=== PATIENT | female | born 2005 | race Caucasian/White ===

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

== ENCOUNTER 2025-04-27 10:47 | Emergency (ER) | payer OTHER, SELFPAY ==
[2025-04-27 11:18] VITALS: BP 133/79; PULSE 87; RESP 20; TEMP 36.6; O2SAT 100; BMI 20.3
--- NOTE | 2025-04-27 11:22 | DI.RAD.S_ITS ---
PROCEDURE: XR CHEST 1V INDICATIONS: sob TECHNIQUE: One view of the chest was acquired. COMPARISON: None. FINDINGS: Surgical changes and devices: None. Lungs and pleura: Lungs are clear. No pleural effusions or pneumothorax. Mediastinum: Mediastinal contours appear normal. Heart size is normal. Bones and chest wall: No suspicious bony lesions. Overlying soft tissues appear unremarkable. IMPRESSION: No acute cardiopulmonary abnormality is seen. Dictated by: Fred Roth M.D. on 04/27/2025 at 12:31 Approved by: Fred Roth M.D. on 04/27/2025 at 12:31
[2025-04-27 12:11] LABS: Influenza A - CEPHEID Flu A NEGATIVE (NEGATIVE); Influenza B - CEPHEID Flu B NEGATIVE (NEGATIVE)
[2025-04-27 12:32] LABS: COVID-19 CEPHEID 4-PLEX PCR Negative (Negative)
--- NOTE | 2025-04-27 13:39 | ED_ITS ---
HPI - URI/Sore Throat <Sherry Cantu PA-C - Last Filed: 04/27/25 15:28> General Chief Complaint: Upper Respiratory Symptoms Stated Complaint: Chest pain , hard time breathing in this morning Time Seen by Provider: 04/27/25 13:21 Source: patient and family Mode of arrival: Ambulatory History of Present Illness HPI Narrative: Ms. Persaud is a very pleasant 19-year-old female with no reported past medical history who presents to the emergency department with her girlfriend for chest pain and shortness of breath that started this morning. Patient states over the last few months she is dealt with intermittent chest pain and shortness of breath however it always went away on her own and she does not currently have a primary care doctor. This morning she woke up at 5:45 a.m. for work and noticed that her bilateral chest wall was hurting her and she has discomfort taking a deep breath. She noticed last night when she went to bed that she was actually quite sore on the front of her chest without any known trauma. She continues to feel sore and tender on both sides of her sternum. Denies fevers, chills, coughing however does report recent decrease in vaping. No history of asthma or COPD. No abdominal pain or acid reflux. No lower extremity pain or swelling. No control or hormone use, history of DVT or VTE, recent surgery, hemoptysis prolonged travel or trauma. Related Data Home Medications ?Medication ?Instructions ?Recorded ?Confirmed etonogestrel 68 mg subdermal subdermal 09/30/21 implant (Nexplanon) Previous Rx's ?Medication ?Instructions ?Recorded ondansetron 4 mg disintegrating 4 mg PO TID-QID PRN na usea and 10/03/20 tablet vomiting #10 tabs cyclobenzaprine 10 mg tablet 10 mg PO TID PRN muscle s pasm #10 12/27/24 tabs naproxen 500 mg tablet 500 mg PO BID PRN pain #20 t abs 04/27/25 Allergies Allergy/AdvReac Type Severity Reaction Status Date / Time No Known Drug Allergies Allergy Verified 04/27/25 11:18 Review of Systems <Sherry Cantu PA-C - Last Filed: 04/27/25 15:28> Review of Systems ROS Unobtainable: All systems reviewed & are unremarkable except as noted in HPI and below Patient History <Sherry Cantu PA-C - Last Filed: 04/27/25 15:28> Medical History Nexplanon in place (03/13/21) Nexplanon insertion (03/13/21) Major depression Suicide attempt Depression Surgical History Status post myringotomy with insertion of tube tobacco type: vaping alcohol intake frequency: 0-2 drinks per day Exam <Sherry Cantu PA-C - Last Filed: 04/27/25 15:28> Narrative Exam Narrative: GENERAL: 19 year old patient appears stated age. Well-developed patient, in no acute distress. HEAD: Atraumatic. Normocephalic. EYES: No scleral icterus. No injection or drainage. ENT: Nose without bleeding, purulent drainage. Throat without erythema, tonsillar hypertrophy or exudate. Airway patent. NECK: Trachea midline. Cervical ROM intact. CARDIOVASCULAR: Regular rate and rhythm. TTP BL anterior chest wall around ribs 2 and 3. RESPIRATORY: ?Nonlabored respirations. ?Speaking in clear, full sentences. ?Clear to auscultation. Breath sounds equal bilaterally. No wheezes, rales, or rhonchi. ? GASTROINTESTINAL: Abdomen soft, non-tender, nondistended. EXTREMITIES: No LE edema or calf tenderness. BACK: Nontender NEURO: AOx3. ?Clear speech. ?Moves all 4 extremities appropriately. SKIN: No rash or erythema of visible areas Initial Vital Signs Initial Vital Signs: Vital Signs Temperature 98 F 04/27/25 11:18 Pulse Rate 87 04/27/25 11:18 Respiratory Rate 04/27/25 11:18 Blood Pressure 133/79 04/27/25 11:18 Pulse Oximetry 100 04/27/25 11:18 Oxygen Delivery Method Room Air 04/27/25 11:18 <Alanna Dowd DO - Last Filed: 04/28/25 08:29> Initial Vital Signs Initial Vital Signs: Vital Signs Temperature 98 F 04/27/25 11:18 Pulse Rate 87 04/27/25 11:18 Respiratory Rate 04/27/25 11:18 Blood Pressure 133/79 04/27/25 11:18 Pulse Oximetry 100 04/27/25 11:18 Oxygen Delivery Method Room Air 04/27/25 11:18 Course <Sherry Cantu PA-C - Last Filed: 04/27/25 15:28> Orders Ordered: Discontinued Medications Naproxen (Naproxen 250 Mg Tablet) 500 mg PO NOW ONE Stop: 04/27/25 13:56 Last Admin: 04/27/25 15:03 Dose: 500 mg Documented By: Vital Signs Vital signs: Vital Signs - 8 hr 04/27/25 11:18 04/27/25 15:07 Temperature 98 F 98.4 F Pulse Rate 87 68 Respiratory Rate 20 19 Blood Pressure 133/79 122/78 Pulse Oximetry 100 98 Oxygen Delivery Method Room Air Room Air <Alanna Dowd DO - Last Filed: 04/28/25 08:29> Orders Ordered: Discontinued Medications Naproxen (Naproxen 250 Mg Tablet) 500 mg PO NOW ONE Stop: 04/27/25 13:56 Last Admin: 04/27/25 15:03 Dose: 500 mg Documented By: Vital Signs Vital signs: Vital Signs - 8 hr 04/27/25 11:18 04/27/25 15:07 Temperature 98 F 98.4 F Pulse Rate 87 68 Respiratory Rate 20 19 Blood Pressure 133/79 122/78 Pulse Oximetry 100 98 Oxygen Delivery Method Room Air Room Air MDM - URI/Sore Throat <Sherry Cantu PA-C - Last Filed: 04/27/25 15:28> Medical Records Attestation: I reviewed the patient's medical records. Lab Data Labs: Lab Results 04/27/25 Range/Units 11:24 SARS-CoV-2 (PCR) Negative (Negative) Influenza A (RT-PCR) Flu a negative (NEGATIVE) Influenza B (RT-PCR) Flu b negative (NEGATIVE) RSV (PCR) Negative (Negative) Imaging Data Chest x-ray: Radiologist's Impression: PROCEDURE: XR CHEST 1V INDICATIONS: sob TECHNIQUE: One view of the chest was acquired. COMPARISON: None. FINDINGS: Surgical changes and devices: None. Lungs and pleura: Lungs are clear. No pleural effusions or pneumothorax. Mediastinum: Mediastinal contours appear normal. Heart size is normal. Bones and chest wall: No suspicious bony lesions. Overlying soft tissues appear unremarkable. IMPRESSION: No acute cardiopulmonary abnormality is seen. Dictated by: Fred Roth M.D. on 04/27/2025 at 12:31 Approved by: Fred Roth M.D. on 04/27/2025 at 12:31 [facility] Narrative Medical decision making narrative: 19-year-old female with no reported past medical history who presents to the emergency department with her girlfriend for chest pain and shortness of breath that started this morning. Differential diagnosis includes but is not limited to pneumonia, pleurisy, costochondritis, bronchitis, reactive airway disease, PE, GERD, rib fracture, etc. On exam the patient is in no acute distress, nontoxic-appearing, all vital signs within normal limits. She has no tachypnea, tachycardia, hypoxia or fever. No history of VTE, hemoptysis, hormones, lower extremity pain or swelling or other PE risk factors. She does have tenderness on the bilateral anterior chest wall that started last night without trauma. She does vape and smoke marijuana however has been trying to decrease this. Viral swab and x-ray obtained in triage both negative, we will obtain baseline EKG, discussed with the patient possibility of costochondritis we will trial naproxen. EKG reviewed with attending ED physician Dr. Hand, reveal normal sinus rhythm with a rate of 84 beats per minute, QTC 437, no ST segment elevations or depressions., similar to prior EKG 12/27/2024. Discussed all results with the patient her girlfriend at the bedside. Recommended follow up with PCP for further evaluation, at this time recommended prescribed anti-inflammatories, rest, hydration monitoring symptoms, strict ER return precautions. Patient verbalized understanding of all information is agreeable with the plan. She is stable for discharge home, all vital signs within normal limits. <Alanna Dowd, DO - Last Filed: 04/28/25 08:29> Lab Data Labs: Lab Results 04/27/25 Range/Units 11:24 SARS-CoV-2 (PCR) Negative (Negative) Influenza A (RT-PCR) Flu a negative (NEGATIVE) Influenza B (RT-PCR) Flu b negative (NEGATIVE) RSV (PCR) Negative (Negative) Discharge Plan Departure Patient Disposition: Home Clinical Impression: Anterior chest wall pain Dyspnea Qualifiers: Dyspnea type: unspecified Qualified Code(s): R06.00 - Dyspnea, unspecified Instructions: DI for Costochondritis Activity Restrictions/Additional Instructions: Dear Berry, Thank you for coming to the emergency department. The findings on your imaging and EKG today were reassuring. Your viral swab was negative. At this time I would like you to trial the course of anti-inflammatory pain medication that I have sent to your pharmacy. It is of the utmost importance that you call and schedule an appointment with the primary care doctor for further evaluation. Please return to the emergency department if you develop any new or worsening symptoms, persistent fevers, worsening pain or any other concerns. Please follow up with your primary care doctor within the next 2-3 days for ER follow-up. (If you do not have a PCP you can call [phone]. ?to schedule an appointment with an [facility] Primary Care Provider) IF YOU DEVELOP ANY NEW OR WORSENING SYMPTOMS, RETURN TO THE ER! Please read the attached instructions, they highlight more specific treatments and interventions for you at home. Thank you for letting me participate in your care, Sherry Cantu PA-C Prescriptions: New naproxen 500 mg tablet 500 mg PO BID PRN (Reason: pain) Qty: 20 0RF No Action Nexplanon 68 mg implant subdermal cyclobenzaprine 10 mg tablet 10 mg PO TID PRN (Reason: muscle spasm) Qty: 10 0RF ondansetron 4 mg tablet,disintegrating 4 mg PO TID-QID PRN (Reason: nausea and vomiting) Qty: 10 0RF Stand Alone Forms: Patient Portal/API, Work Release Note ED Sign-out <Alanna Dowd, - Last Filed: 04/28/25 08:29> Cosign ED Attending Cosanujaature Attestation: I was available for consultation.
--- NOTE | 2025-04-27 14:24 | EKG_ITS ---
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
[2025-04-27] MEDS: NAPROXEN 250 MG TABLET 500 MG PO (15:03)
[2025-04-27 15:07] VITALS: BP 122/78; PULSE 68; RESP 19; TEMP 36.9; O2SAT 98
== END 2025-04-27 15:08 | disposition home or self-care (01) ==
PROVIDERS: Emergency Provider Physician Assistant; Family Provider Family Medicine
DX: R07.89 Other chest pain (principal); R06.00 Dyspnea, unspecified
CPT/HCPCS: 71045; 87637; 93005; 99283; 99284

== ENCOUNTER → 2025-05-03 13:34 | Outpatient (CLI) | payer OTHER, SELFPAY ==
[2025-05-03 15:03] LABS: Add Manual Diff / Slide Review NO; Hematocrit 37.4 % (36-46); Hemoglobin 12.5 g/dL (12.0-16.0); Lymphocytes Absolute Auto 1200 /uL (1100-4500); Mean Corpuscular HGB Conc 33.4 % (30-36); Mean Corpuscular Hemoglobin 29.1 PG (26-34); Mean Corpuscular Volume 87.1 fL (80-100); Platelet Count 240 X10^3/uL (150-400)
[2025-05-03 15:09] LABS: HEMOLYSIS < 15 (0-50); Iron 27 ug/dL (37-170)
[2025-05-03 15:11] LABS: Alanine Aminotransferase 9 IU/L (<35); Albumin 4.6 g/dL (3.5-5.0); Albumin Globulin Ratio 2.0 (1.0-2.8); Alkaline Phosphatase 48 U/L (38-126); Blood Urea Nitrogen 11 mg/dL (7-17); Calcium 9.6 mg/dL (8.4-10.2); Carbon Dioxide 25 mmol/L (22-32); Chloride 104 mmol/L (98-107); Estimated Glomerular Filt Rate > 60 mL/min (>60); Globulin 2.3 g/dL (1.7-4.1); Glucose 94 mg/dL (70-99); HEMOLYSIS < 15 (0-50); Potassium 4.1 mmol/L (3.4-5.1); Sodium 138 mmol/L (137-145); Total Protein 6.9 g/dL (6.3-8.2)
[2025-05-03 15:21] LABS: Percent Iron Saturation 9 % (15-50); Total Iron Binding Capacity 298 ug/dL (265-497); Transferrin 239 mg/dL (206-381)
[2025-05-03 15:34] LABS: Vitamin D 25 Hydroxy (D3) 15.8 ng/mL (30.0-100.0)
[2025-05-03 15:43] LABS: TSH w/ Reflex to FT4 1.43 uIU/mL (0.47-4.68)
[2025-05-03 15:46] LABS: Ferritin 64 ng/mL (6-137)
== END ==
PROVIDERS: Family Provider Family Medicine; PCP Nurse Practitioner Family; Referring Provider Nurse Practitioner Family; Visit Provider Nurse Practitioner Family
DX: R00.0 Tachycardia, unspecified (principal); R53.83 Other fatigue; R00.2 Palpitations
CPT/HCPCS: 80053; 82306; 82728; 83540; 83550; 84443; 85025

== ENCOUNTER → 2025-05-17 09:39 | Outpatient (CLI) | payer OTHER, SELFPAY | LOC: CAR 09:39 | PROVIDERS: Family Provider Family Medicine; PCP Nurse Practitioner Family; Referring Provider Nurse Practitioner Family; Visit Provider Nurse Practitioner Family | DX: R00.2 Palpitations (principal); R06.02 Shortness of breath; R07.9 Chest pain, unspecified; R53.83 Other fatigue | CPT/HCPCS: 93242 ==

== ENCOUNTER 2025-06-07 06:34 | Emergency (ER) | payer OTHER, SELFPAY ==
[2025-06-07 07:00] VITALS: BP 120/76; PULSE 84; RESP 15; TEMP 36.8; O2SAT 100; BMI 19.5
--- NOTE | 2025-06-07 07:30 | ED_ITS ---
HPI - Chest Pain General Chief Complaint: Recheck/Abnormal Lab/Rx Stated Complaint: Chest pain, neck pain Time Seen by Provider: 06/07/25 07:17 Source: patient Mode of arrival: Ambulatory Limitations: no limitations History of Present Illness HPI narrative: Patient here with her significant other. Complains of ongoing substernal chest sharp pain for over a year. Patient is seen here April 27, 2025 for the same complaint. She did follow up with her primary care May 03, 2025 for a Zio patch. Normal TSH and laboratory studies. Chest x-ray done on April 27 no acute finding. Patient had another episode this morning that lasted about an hour sharp pain with palpitations no syncope. No numbness tingling or weakness no shortness of breath. Patient just completed her Zio patch by primary care. I did review with her as it was downloaded on her phone. It does show sinus tachycardia multiple episodes upwards 190 beats per minute and these episodes are predominantly in the morning times. There was an episode of Wenckebach. Patient denies any new medications new stressors in life. Has not started any blood pressure medication or antiarrhythmics. Related Data Previous Rx's ?Medication ?Instructions ?Recorded naproxen 500 mg tablet 500 mg PO BID PRN pain #20 t abs 04/27/25 metoprolol tartrate 25 mg tablet 25 mg PO DAILY PRN Pa lpitations 06/07/25 #30 tabs Allergies Allergy/AdvReac Type Severity Reaction Status Date / Time No Known Drug Allergies Allergy Verified 06/07/25 07:00 Review of Systems Review of Systems Narrative: GENERAL: Negative chills, fatigue, malaise, fever, sweats. HEENT: Negative sinus pain, ear pain, sore throat RESPIRATORY: Negative dyspnea, cough CARDIOVASCULAR: Positive chest pain, palpitations GASTROINTESTINAL: Negative vomiting, nausea, abdominal pain : Negative dysuria, frequency, hematuria MUSCULOSKELETAL: Negative muscle or bony pain SKIN: Negative rash, skin lesions NEUROLOGIC: Negative weakness, numbness ROS Unobtainable: All systems reviewed & are unremarkable except as noted in HPI and below Patient History Medical History (Updated 06/07/25 @ 08:33 by Julius Schwab MD) Tachycardia Family history of multiple myeloma Nexplanon in place (03/13/21) Nexplanon insertion (03/13/21) Major depression Suicide attempt Depression Surgical History Status post myringotomy with insertion of tube Social History Smoking Status: Current every day smoker Smoking Status: Current every day smoker tobacco type: vaping alcohol intake frequency: 0-2 drinks per day Exam Narrative Exam Narrative: GENERAL: in no distress, not toxic not dyspneic HEAD: Normocephalic. EYES: Pupils equal round ENT: Mucous membranes moist. NECK: Trachea midline. CARDIOVASCULAR: Regular rate and rhythm RESPIRATORY: Clear to auscultation. Breath sounds equal bilaterally. No wheezes, rales, or rhonchi. GASTROINTESTINAL: Abdomen soft, non-tender BACK: No flank tenderness. EXTREMITIES: No gross deformities. NEURO: AOx4. Clear speech SKIN: Warm and dry PSYCH: Not anxious, is cooperative Initial Vital Signs Initial Vital Signs: Vital Signs Temperature 98.3 F 06/07/25 07:00 Pulse Rate 84 06/07/25 07:00 Respiratory Rate 15 06/07/25 07:00 Blood Pressure 120/76 06/07/25 07:00 Pulse Oximetry 100 06/07/25 07:00 Oxygen Delivery Method Room Air 06/07/25 07:00 Scores HEART Score Heart Score history: Slightly Suspicious Heart Score EKG: Normal Heart Score Age: < 45 years old Heart Score risk factors: No known risk factors Heart Score troponin: < or = to normal limit Heart Score Total: 0 Course Orders Ordered: ED Orders 06/07/25 07:28 EKG-12 Lead Stat 06/07/25 07:50 CBC Auto Diff [Complete Blood Count AUTO DIFF] Stat CMP [Comprehensive Metabolic Panel] Stat Magnesium Stat Test Serum,Qual Stat Troponin & CK Cardiac Panel Stat Discontinued Medications Metoprolol Tartrate (Metoprolol Ir 25 Mg Tablet) 25 mg PO NOW ONE Stop: 06/07/25 07:57 Last Admin: 06/07/25 07:58 Dose: 25 mg Documented By: DEBBIE Vital Signs Vital signs: Vital Signs - 8 hr 06/07/25 07:00 06/07/25 09:10 Temperature 98.3 F Pulse Rate 84 69 Respiratory Rate 15 Blood Pressure 120/76 113/71 Pulse Oximetry 100 100 Oxygen Delivery Method Room Air Room Air MDM - Chest Pain Lab Data 06/07/25 07:50 06/07/25 07:50 Labs: Lab Results 06/07/25 Range/Units 07:50 WBC 6.2 (4.5-11.0) X10^3/uL RBC 4.49 (4.0-5.2) X10^6/uL Hgb 13.1 (12.0-16.0) g/dL Hct 38.7 (36-46) % MCV 86.2 (80-100) fL MCH 29.1 (26-34) PG MCHC 33.8 (30-36) % RDW 13.2 (11.6-14.8) % Plt Count 259 (150-400) X10^3/uL Neut % (Auto) 71.2 (50-75) % Lymph % (Auto) 19.8 L (25-40) % [place] % (Auto) 6.6 (3-14) % Eos % (Auto) 1.4 L (2-4) % Baso % (Auto) 1.0 (0-2) % Neut # (Auto) 4400 (8185-0377) /uL Lymph # (Auto) 1200 (7533-3310) /uL [place] # (Auto) 400 (0-900) /uL Eos # (Auto) 100 (0-450) /uL Baso # (Auto) 100 (0-100) /uL Sodium 138 (137-145) mmol/L Potassium 4.4 (3.4-5.1) mmol/L Chloride 107 (98-107) mmol/L Carbon Dioxide 23 (22-32) mmol/L BUN 10 (7-17) mg/dL Creatinine 0.73 (0.52-1.04) mg/dL Estimated GFR > 60 (>60) mL/min BUN/Creatinine Ratio 13.7 (6-22) Glucose 96 (70-99) mg/dL Calcium 9.1 (8.4-10.2) mg/dL Magnesium 2.0 (1.6-2.3) mg/dL Total Bilirubin 0.5 (0.2-1.3) mg/dL AST 22 (14-36) IU/L ALT 11 (<35) IU/L Alkaline Phosphatase 47 (38-126) U/L Total Creatine Kinase 22 L (30-135) U/L Troponin I < 0.012 (0.01-0.034) ng/mL Total Protein 7.3 (6.3-8.2) g/dL Albumin 4.6 (3.5-5.0) g/dL Globulin 2.7 (1.7-4.1) g/dL Albumin/Globulin Ratio 1.7 (1.0-2.8) Serum , Qual Negative (Negative) MDM Narrative Medical decision making narrative: Patient here with her significant other. Complains of ongoing substernal chest sharp pain for over a year. Patient is seen here April 27, 2025 for the same complaint. She did follow up with her primary care May 03, 2025 for a Zio patch. Normal TSH and laboratory studies. Chest x-ray done on April 27 no acute finding. Patient had another episode this morning that lasted about an hour sharp pain with palpitations no syncope. No numbness tingling or weakness no shortness of breath. Patient just completed her Zio patch by primary care. I did review with her as it was downloaded on her phone. It does show sinus tachycardia multiple episodes upwards 190 beats per minute and these episodes are predominantly in the morning times. There was an episode of Wenckebach. Patient denies any new medications new stressors in life. Has not started any blood pressure medication or antiarrhythmics. MDM After history and exam, Differential considered: Includes but not limited to Medical records reviewed: Ear notes here as well as x-ray chest April 27, 2025, primary care office notes May 03, 2025 and laboratory studies Lab Test results independently reviewed as above. Pertinent findings: Negative WBC 6.2 hemoglobin 13.1 sodium 130 potassium 4.4 troponin less than 0.012 calcium 9.1 magnesium 2.0 Independently reviewed EKG normal sinus rhythm rate 86 Imaging studies independently reviewed: None indicated at this time Consultations: 7:50 a.m.. I spoke with Cardiology on-call, dr winchester, recommends starting patient on metoprolol tartrate 25 mg daily. Patient may take this as needed for palpitations as well. Patient may follow up with him in his office for future echocardiogram/stress test and further workup including but not limited to POTS Re-evaluations: 9:10 a.m. Updated patient results and my discussion with Cardiology, she agrees with treatment plan and medications and prescription and follow up. Reviewed with patient metoprolol, may take 1 extra dose if has breakthrough palpitations and if not improving after 1 hour come to the ER. Discussion: Appropriate for discharge home. Exam is reassuring. Laboratory studies are reassuring. Cardiology service contacted. Return precautions reviewed. Patient desires discharge home. Diagnosis: Tachycardic Discharge Plan Departure Patient Disposition: Home Clinical Impression: Tachycardia Instructions: DI for Tachycardia Activity Restrictions/Additional Instructions: Your exam and laboratory studies are reassuring. Please call provided cardiology office today to make appointment for follow up appointment regarding your findings and results of Zio patch. He would like you to start metoprolol medication today. This is taken once daily in the morning and you may take repeat single dose if you have chest pain or palpitations and if not improving after an hour then come to the ER. Prescriptions: New metoprolol tartrate 25 mg tablet 25 mg PO DAILY PRN (Reason: Palpitations) Qty: 30 0RF No Action naproxen 500 mg tablet 500 mg PO BID PRN (Reason: pain) Qty: 20 0RF Referrals: Curt Sellers MD [Physician, Cardiology] Erica Gaines FNP-BC [Primary Care Provider, Family Practice] Stand Alone Forms: Patient Portal/API, Work Release Note
--- NOTE | 2025-06-07 07:55 | EKG_ITS ---
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
[2025-06-07] MEDS: METOPROLOL IR 25 MG TABLET PO (07:58)
[2025-06-07 08:03] LABS: Add Manual Diff / Slide Review NO; Hematocrit 38.7 % (36-46); Hemoglobin 13.1 g/dL (12.0-16.0); Lymphocytes Absolute Auto 1200 /uL (1100-4500); Mean Corpuscular HGB Conc 33.8 % (30-36); Mean Corpuscular Hemoglobin 29.1 PG (26-34); Mean Corpuscular Volume 86.2 fL (80-100); Platelet Count 259 X10^3/uL (150-400)
[2025-06-07 08:14] LABS: Alanine Aminotransferase 11 IU/L (<35); Albumin 4.6 g/dL (3.5-5.0); Albumin Globulin Ratio 1.7 (1.0-2.8); Alkaline Phosphatase 47 U/L (38-126); Blood Urea Nitrogen 10 mg/dL (7-17); Calcium 9.1 mg/dL (8.4-10.2); Carbon Dioxide 23 mmol/L (22-32); Chloride 107 mmol/L (98-107); Estimated Glomerular Filt Rate > 60 mL/min (>60); Globulin 2.7 g/dL (1.7-4.1); Glucose 96 mg/dL (70-99); HEMOLYSIS < 15 (0-50); Magnesium 2.0 mg/dL (1.6-2.3); Potassium 4.4 mmol/L (3.4-5.1); Sodium 138 mmol/L (137-145); Total Protein 7.3 g/dL (6.3-8.2)
[2025-06-07 08:25] LABS: Pregnancy Test Serum,Qual Negative (Negative)
[2025-06-07 08:36] LABS: Creatine Kinase 22 U/L (30-135)
[2025-06-07 08:49] LABS: Troponin I < 0.012 ng/mL (0.01-0.034)
[2025-06-07 09:10] VITALS: BP 113/71; PULSE 69; O2SAT 100
== END 2025-06-07 09:10 | disposition home or self-care (01) ==
PROVIDERS: Emergency Provider Emergency Medicine; Family Provider Family Medicine; PCP Nurse Practitioner Family
DX: R00.0 Tachycardia, unspecified (principal); R07.9 Chest pain, unspecified
CPT/HCPCS: 36415; 80053; 82550; 83735; 84484; 84703; 85025; 93005; 93010; 99283; 99284